=== PATIENT | female | born 1985 | race American Indian/Alaskan Native ===

== ENCOUNTER 2017-11-01 16:25 | Emergency (ER) | payer MEDICAID ==
[2017-11-01] MEDS ORDERED: TYLENOL PO ONE (20:11)
[2017-11-01] MEDS ORDERED: XYLOCAINE TOPICAL 2% 5ML ONE (20:15)
[2017-11-01] MEDS: XYLOCAINE TOPICAL 2% 30ML TP ONE ×2 (20:21→20:22)
[2017-11-01] MEDS ORDERED: XYLOCAINE TOPICAL 2% 5ML TP ONE (20:22)
--- NOTE | 2017-11-01 20:29 | Emergency Department Report ---
ED Female HPI - General Chief complaint: Rectal Pain Stated complaint: HEMORRHOIDS Time Seen by Provider: 11/01/17 20:10 Source: patient Mode of arrival: Wheelchair Limitations: No Limitations - History of Present Illness Initial comments: 31-year-old female past medical history hemorrhoids presents with complaint of painful external hemorrhoid. Patient denies any anal bleeding. States she has had this for some time and has had a history of hemorrhoids with pregnancies. Patient is currently . Patient denies any abdominal pain or vaginal bleeding. Denies any blood on toilet paper. States she is having slightly painful bowel movements. MD Complaint: other (hemorrhoids) Onset/Timin -: week(s) Location: other (anal region) Worsens with: other (defecation) Are you Now?: Yes Associated Symptoms: denies other symptoms - Related Data Sexually active: Yes Home Medications Medication Instructions Recorded Confirmed Last Taken Vit No.130/Iron/Folic 1 each PO DAILY 09/28/16 04/09/17 04/09/17 [ Tablet] Previous Rx's Medication Instructions Recorded Last Taken Type Ibuprofen [Motrin] 800 mg PO Q8HR PRN #30 tablet 04/11/17 Unknown Rx Labetalol HCl 300 mg PO BID #60 tablet 04/11/17 Unknown Rx oxyCODONE /ACETAMINOPHEN [Percocet 1 tab PO Q6HR PRN #30 tablet 04/11/17 Unknown Rx 5/325] Acetaminophen [Acetaminophen TAB] 500 mg PO Q6HR PRN #30 tablet 11/01/17 Unknown Rx Docusate Sodium [Stool Softener] 50 mg PO BID PRN #60 capsule 11/01/17 Unknown Rx Lidocaine Topical 2% 30Ml 1 applicatio MM BID PRN #1 tube 11/01/17 Unknown Rx [Xylocaine Topical 2% 30Ml] Phenyleph/Pramoxin/Glycr/W.pet 1 applicatio RC BID #1 cream..g. 11/01/17 Unknown Rx [Preparation H Cream] Psyllium Seed (with Sugar) 1 each PO QDAY PRN #1 box 11/01/17 Unknown Rx [Metamucil] Allergies Allergy/AdvReac Type Severity Reaction Status Date / Time codeine Allergy Anaphylaxis Verified 03/14/16 10:06 ED Review of Systems ROS: Stated complaint: HEMORRHOIDS Other details as noted in HPI Constitutional: denies: chills, fever Eyes: denies: eye pain, eye discharge, vision change ENT: denies: ear pain, throat pain Respiratory: denies: cough, shortness of breath, wheezing Cardiovascular: denies: chest pain, palpitations Endocrine: no symptoms reported Gastrointestinal: denies: abdominal pain, nausea, diarrhea Genitourinary: denies: urgency, dysuria, discharge Musculoskeletal: denies: back pain, joint swelling, arthralgia Skin: denies: rash, lesions Neurological: denies: headache, weakness, paresthesias Psychiatric: denies: anxiety, depression Hematological/Lymphatic: denies: easy bleeding, easy bruising ED Past Medical Hx - Past Medical History Hx Hypertension: Yes Hx Congestive Heart Failure: No Hx Diabetes: No Hx Deep Vein Thrombosis: No Hx Renal Disease: No Hx Sickle Cell Disease: No Hx Headaches / Migraines: Yes (past hx migraines) Hx Seizures: No Hx Asthma: Yes Hx COPD: No - Surgical History Past Surgical History?: Yes Additional Surgical History: D&C february - Social History Smoking Status: Never Smoker Substance Use Type: None - Medications Home Medications: Home Medications Medication Instructions Recorded Confirmed Last Taken Type Vit No.130/Iron/Folic 1 each PO DAILY 09/28/16 04/09/17 04/09/17 History [ Tablet] Ibuprofen [Motrin] 800 mg PO Q8HR PRN #30 tablet 04/11/17 Unknown Rx Labetalol HCl 300 mg PO BID #60 tablet 04/11/17 Unknown Rx oxyCODONE /ACETAMINOPHEN [Percocet 1 tab PO Q6HR PRN #30 tablet 04/11/17 Unknown Rx 5/325] Acetaminophen [Acetaminophen TAB] 500 mg PO Q6HR PRN #30 tablet 11/01/17 Unknown Rx Docusate Sodium [Stool Softener] 50 mg PO BID PRN #60 capsule 11/01/17 Unknown Rx Lidocaine Topical 2% 30Ml 1 applicatio MM BID PRN #1 tube 11/01/17 Unknown Rx [Xylocaine Topical 2% 30Ml] Phenyleph/Pramoxin/Glycr/W.pet 1 applicatio RC BID #1 cream..g. 11/01/17 Unknown Rx [Preparation H Cream] Psyllium Seed (with Sugar) 1 each PO QDAY PRN #1 box 11/01/17 Unknown Rx [Metamucil] ED Physical Exam - General Limitations: No Limitations General appearance: alert, in no apparent distress - Head Head exam: Present: atraumatic, normocephalic - Eye Eye exam: Present: normal appearance, PERRL, EOMI - ENT ENT exam: Present: mucous membranes moist - Neck Neck exam: Present: normal inspection - Respiratory Respiratory exam: Present: normal lung sounds bilaterally. Absent: respiratory distress - Cardiovascular Cardiovascular Exam: Present: regular rate, normal rhythm. Absent: systolic murmur, diastolic murmur, rubs, gallop - GI/Abdominal GI/Abdominal exam: Present: soft, normal bowel sounds - Rectal Rectal exam: Present: hemorrhoids (1-2 large xternal reducible hemorrhoids) - External exam: Present: normal external exam - Extremities Exam Extremities exam: Present: normal inspection - Back Exam Back exam: Present: normal inspection - Neurological Exam Neurological exam: Present: alert, oriented X3 - Psychiatric Psychiatric exam: Present: normal affect, normal mood - Skin Skin exam: Present: warm, dry, intact, normal color. Absent: rash ED Course Vital Signs 11/01/17 17:18 Temperature 98.7 F Pulse Rate 86 Respiratory 16 Rate Blood Pressure 176/95 O2 Sat by Pulse 99 Oximetry ED Medical Decision Making - Medical Decision Making A/P: External Hemorrhoids 1-as patient is this limits my analgesic spectrum for management. Tylenol when necessary for pain 2-topical hydrocortisone/lidocaine/Preparation H 3-sitz baths 4-I referred patient to gastroenterology Critical care attestation.: If time is entered above; I have spent that time in minutes in the direct care of this critically ill patient, excluding procedure time. ED Disposition Clinical Impression: External hemorrhoids Disposition: DC-01 TO HOME OR SELFCARE Is pt being admited?: No Does the pt Need Aspirin: No Condition: Stable Instructions: Hemorrhoids (ED), Hemorrhoidectomy (ED), Sitz Bath (GEN) Prescriptions: Acetaminophen [Acetaminophen TAB] 500 mg PO Q6HR PRN #30 tablet PRN Reason: Pain Docusate Sodium [Stool Softener] 50 mg PO BID PRN #60 capsule PRN Reason: Constipation Lidocaine Topical 2% 30Ml [Xylocaine Topical 2% 30Ml] 1 applicatio MM BID PRN # 1 tube PRN Reason: Hemorrhoids Phenyleph/Pramoxin/Glycr/W.pet [Preparation H Cream] 1 applicatio RC BID #1 cream..g. Psyllium Seed (with Sugar) [Metamucil] 1 each PO QDAY PRN #1 box PRN Reason: Constipation Referrals: CHUN NGUYEN MD [Primary Care Provider] - 3-5 Days [facility] [Provider Group] - 3-5 Days Forms: Accompanied Note Time of Disposition: 20:34
[2017-11-01 21:08] VITALS: BP 153/69
== END 2017-11-01 21:08 | disposition home or self-care (01) ==
LOC: ED 16:25
DX: K64.4 Residual hemorrhoidal skin tags (principal); I10 Essential (primary) hypertension; G43.909 Migraine, unspecified, not intractable, without status migrainosus; Z88.5 Allergy status to narcotic agent
CPT/HCPCS: 99283

== ENCOUNTER 2018-04-26 08:47 | Outpatient (CLI) | payer MEDICAID, OTHER ==
[2018-04-26] MEDS ORDERED: NORCO 5/325 PO ONE (09:53)
[2018-04-26 10:30] VITALS: BP 108/58
== END 2018-04-26 10:38 | disposition home or self-care (01) ==
LOC: TRG 08:47
PROVIDERS: ATTEND Obstetrics & Gynecology
DX: O47.03 False labor before 37 completed weeks of gestation, third trimester (principal); Z3A.33 33 weeks gestation of pregnancy; Z88.5 Allergy status to narcotic agent
CPT/HCPCS: 59025

== ENCOUNTER 2018-05-07 11:15 | Outpatient (CLI) | payer OTHER ==
[2018-05-07] MEDS ORDERED: LACTATED RINGERS 500 ML IV ONE (12:06)
[2018-05-07 15:11] VITALS: BP 144/87
== END 2018-05-07 15:55 | disposition left against medical advice (07) ==
LOC: TRG 11:15
PROVIDERS: ATTEND Obstetrics & Gynecology
DX: O47.03 False labor before 37 completed weeks of gestation, third trimester (principal); O11.3 Pre-existing hypertension with pre-eclampsia, third trimester; O99.213 Obesity complicating pregnancy, third trimester; Z3A.35 35 weeks gestation of pregnancy; Z88.6 Allergy status to analgesic agent
CPT/HCPCS: 59025

== ENCOUNTER 2018-05-07 15:58 | Outpatient (CLI) | payer OTHER ==
[2018-05-07] MEDS ORDERED: LACTATED RINGERS 500 ML IV ONE (16:10)
[2018-05-07 17:20] LABS: Hematocrit 36.6 % (30.3-42.9); Hemoglobin 12.1 gm/dl (10.1-14.3); Mean Corpuscular HGB Conc 33 % (30-34); Mean Corpuscular Hemoglobin 30 pg (28-32); Mean Corpuscular Volume 89 fl (79-97); Platelet Count 241 K/mm3 (140-440); Red Blood Count 4.09 M/mm3 (3.65-5.03); Red Cell Distribution Width 13.6 % (13.2-15.2)
[2018-05-07 17:24] LABS: Bacteria,Urine 1+ /HPF (Negative); Bilirubin,Urine NEG (Negative); Blood,Urine NEG (Negative); Color,Urine Yellow (Yellow); Mucus,Urine FEW /HPF; Protein,Urine <15 mg/dL mg/dL (Negative); Urobilinogen,Urine < 2.0 mg/dL (<2.0)
[2018-05-07 17:46] LABS: Alanine Aminotransferase 9 units/L (7-56); Uric Acid 4.3 mg/dL (3.5-7.6)
[2018-05-07 18:28] VITALS: BP 134/70
[2018-05-07] MEDS ORDERED: NORCO 5/325 PO ONE (18:50)
== END 2018-05-07 20:10 | disposition home or self-care (01) ==
LOC: TRG 15:58
PROVIDERS: ATTEND Obstetrics & Gynecology
DX: O47.03 False labor before 37 completed weeks of gestation, third trimester (principal); O11.3 Pre-existing hypertension with pre-eclampsia, third trimester; O99.213 Obesity complicating pregnancy, third trimester; Z3A.35 35 weeks gestation of pregnancy; Z88.6 Allergy status to analgesic agent
CPT/HCPCS: 36415; 59025; 81001; 82565; 83615; 84450; 84460; 84550; 85027

== ENCOUNTER 2018-06-05 02:28 | Inpatient (IN) | payer OTHER ==
[2018-06-05] MEDS ORDERED: LACTATED RINGERS 1,000 ML ONE (02:58)
[2018-06-05] MEDS ORDERED: POLYCILLIN/NS 2 GM/100 ML 2 GM/100 ML BAG IV ONE ×2 (02:59→03:09)
[2018-06-05] MEDS ORDERED: SUBLIMAZE IV ONE (03:08)
[2018-06-05] MEDS ORDERED: SUBLIMAZE ONE ×2 (03:13→05:41)
--- NOTE | 2018-06-05 03:13 | History and Physical Report ---
History of Present Illness Date of examination: 06/05/18 Date of admission: 06/05/18 02:55 History of present illness: 32 yo at 39 weeks presented to [facility] 8cm. course complicated by CHTN with meds. Lack of insurance towards end of , GBS unknown. History of depression with Zoloft during . +HSV 2. Comang't of care with [facility] Past History Past Medical History: hypertension Past Surgical History: no surgical history Family/Genetic History: hypertension Social history: no significant social history, - Obstetrical History Expected Date of Delivery: 06/11/18 Actual Gestation: 39 Week(s) 1 Day(s) : 9 Para: 5 Hx # Term Pregnancies: 5 Number of Living Children: 5 Medications and Allergies Allergies Allergy/AdvReac Type Severity Reaction Status Date / Time codeine Allergy Anaphylaxis Verified 03/14/16 10:06 Home Medications Medication Instructions Recorded Confirmed Last Taken Type Vit No.130/Iron/Folic 1 each PO DAILY 09/28/16 04/09/17 04/09/17 History [ Tablet] Ibuprofen [Motrin] 800 mg PO Q8HR PRN #30 tablet 04/11/17 Unknown Rx Labetalol HCl 300 mg PO BID #60 tablet 04/11/17 Unknown Rx oxyCODONE /ACETAMINOPHEN [Percocet 1 tab PO Q6HR PRN #30 tablet 04/11/17 Unknown Rx 5/325] Acetaminophen [Acetaminophen TAB] 500 mg PO Q6HR PRN #30 tablet 11/01/17 Unknown Rx Docusate Sodium [Stool Softener] 50 mg PO BID PRN #60 capsule 11/01/17 Unknown Rx Lidocaine Topical 2% 30Ml 1 applicatio MM BID PRN #1 tube 11/01/17 Unknown Rx [Xylocaine Topical 2% 30Ml] Phenyleph/Pramoxin/Glycr/W.pet 1 applicatio RC BID #1 cream..g. 11/01/17 Unknown Rx [Preparation H Cream] Psyllium Seed (with Sugar) 1 each PO QDAY PRN #1 box 11/01/17 Unknown Rx [Metamucil] Active Meds: Active Medications Ampicillin Sodium (Polycillin/Ns 2 Gm/100 Ml) 2 gm in 100 mls @ 100 mls/hr IV ONCE ONE Stop: 06/05/18 04:08 - Vital Signs Vital signs: Vital Signs Pulse BP 76 170/85 06/05/18 02:58 06/05/18 02:58 Temp Pulse Resp BP Pulse Ox 76 170/85 06/05/18 02:58 06/05/18 02:58 - Physical Exam Abdomen: Positive: normal appearance - Obstetrical FHR: category 1 Uterine Contraction Monitor Mode: External Cervical Dilatation: 9 Cervical Effacement Percentage: 90 station: 2 Uterine Contraction Pattern: Regular Uterine Tone Measurement Phase: Resting Uterine Contraction Intensity: Strong/Firm Results All other labs normal. Assessment and Plan A: IUP at term Transitional labor Unknown GBS CHTN-elevated BP (pain vs pree) P: PIH panel Ampicillin Anticipate
--- NOTE | 2018-06-05 03:21 | Procedure Note ---
OB Delivery Note - Delivery Date of Delivery: 06/05/18 (6-13oz male @ 0431) Surgeon: KODI CARL Estimated blood loss: 100cc - Vaginal Delivery presentation: vertex Delivery position: OA Intrapartum events: none Delivery augmentation: rupture of membranes Delivery monitor: external FHT, external uterine Route of delivery: Delivery placenta: spontaneous Delivery cord: 3 umbilical vessels Episiotomy: none Delivery laceration: none Anesthesia: none - A at 1 minute: 8 at 5 minutes: 9 Gender: Male (, luskty cry. Skin to skin. Cord blood collected. Spont. placenta, pitocin. FF 3 below U, ML. No lacerations. Inadaquate GBS treatmetn.)
[2018-06-05 03:23] LABS: Hemoglobin 11.4 gm/dl (10.1-14.3); Mean Corpuscular HGB Conc 33 % (30-34); Mean Corpuscular Hemoglobin 30 pg (28-32); Mean Corpuscular Volume 89 fl (79-97); Platelet Count 255 K/mm3 (140-440); Red Blood Count 3.81 M/mm3 (3.65-5.03); Red Cell Distribution Width 13.9 % (13.2-15.2)
[2018-06-05] MEDS ORDERED: PITOCin/NS 20 UNIT/1000ML DRIP 20,000 MILLIUNITS/1,000 ML BAG IV ONE (03:35)
[2018-06-05] MEDS ORDERED: NORMODYNE ONE (05:24)
[2018-06-05] MEDS ORDERED: LACTATED RINGERS 1,000 ML IV ONE (05:25)
[2018-06-05] MEDS ORDERED: PITOCin/NS 20 UNIT/1000ML DRIP 20 UNITS/1,000 ML BAG IV SCH ×2 (06:00→07:00)
[2018-06-05 06:01] LABS: Alanine Aminotransferase 11 units/L (7-56); Uric Acid 3.8 mg/dL (3.5-7.6)
[2018-06-05] MEDS ORDERED: TUCKS PAD TP PRN (06:34)
[2018-06-05] MEDS ORDERED: BENADRYL PO PRN (06:34)
[2018-06-05] MEDS ORDERED: SODIUM CHLORIDE FLUSH SYRINGE 10 ML IV NR (06:34)
[2018-06-05] MEDS ORDERED: PHENERGAN PR PRN (06:34)
[2018-06-05] MEDS ORDERED: ZOFRAN IV PRN (06:34)
[2018-06-05] MEDS ORDERED: LANSINOH TP PRN (06:34)
[2018-06-05] MEDS ORDERED: PHENERGAN PO PRN (06:34)
[2018-06-05] MEDS ORDERED: TYLENOL PO PRN (06:34)
[2018-06-05] MEDS: MOTRIN PO SCH ×2 (07:23→13:47)
[2018-06-05] MEDS: NORCO 5/325 PO PRN ×2 (07:31→16:08)
[2018-06-05] MEDS ORDERED: DULCOLAX PR PRN (10:00)
[2018-06-05] MEDS ORDERED: NORMODYNE PO SCH ×2 (10:00)
[2018-06-05 17:28] LABS: Hematocrit 30.7 % (30.3-42.9)
[2018-06-05] MEDS ORDERED: MILK OF MAGNESIA PO PRN (22:00)
[2018-06-06] MEDS: MOTRIN PO SCH ×3 (00:22→14:15)
[2018-06-06] MEDS: NORMODYNE PO SCH ×3 (00:23→21:47)
[2018-06-06] MEDS: NORCO 5/325 PO PRN ×3 (03:47→19:44)
--- NOTE | 2018-06-06 13:20 | Progress Note ---
Assessment and Plan - Patient Problems (1) Term of male Current Visit: No Status: Acute Plan to address problem: patient doing well discharge home Subjective - Subjective Date of service: 06/06/18 Interval history: Patient without complaints. Attempting to breast feed. Pain well controlled Patient reports: appetite normal, voiding normally, pain well controlled [place]: doing well Objective - Vital Signs Latest vital signs: Vital Signs Temp Pulse Resp BP BP BP 06/06/18 11:30 72 134/82 06/06/18 06:15 98.6 F 76 18 104/72 06/06/18 04:00 98.7 F 68 18 140/89 06/06/18 03:47 18 06/06/18 01:20 18 132/73 06/06/18 00:23 88 156/92 06/05/18 19:15 98 F 98 H 16 144/80 06/05/18 16:08 153/87 06/05/18 14:56 97.4 F L 67 18 153/87 Intake and Output 06/05/18 06/06/18 06/06/18 22:59 06:59 14:59 Intake Total 300 Balance 300 Intake: Intake, Free Water 300 Other: # Voids Void 3 - Exam Uterus: Present: normal, firm - Labs Labs: Abnormal lab results 06/05/18 Range/Units 17:08 Hgb 10.0 L (10.1-14.3) gm/dl
--- NOTE | 2018-06-06 13:21 | Discharge Summary ---
Providers - Providers Date of Admission: 06/05/18 02:55 Date of discharge: 06/06/18 Attending physician: ABEL RUSS Primary care physician: ABEL RUSS Hospitalization Reason for admission: active labor Delivery: Discharge diagnosis: IUP at term delivered baby: male Hospital course: Patient admitted in active labor. Had a . uncomplicated Condition at discharge: Good Disposition: DC-01 TO HOME OR SELFCARE - Discharge Diagnoses (1) Term of male Status: Acute Plan - Discharge Medications Prescriptions: Ibuprofen [Motrin] 800 mg PO Q8HR PRN #60 tablet PRN Reason: Pain, Mild (1-3) - Provider Discharge Summary Activity: no sex for 6 weeks, no heavy lifting 4 weeks, no strenuous exercise Diet: routine Instructions: routine Additional instructions: [] Smoking cessation referral if applicable(refer to patient education folder for contact #) [] Refer to [facility] Booklet Call your doctor immediately for: * Fever > 100.5 * Heavy vaginal bleeding ( >1 pad per hour) * Severe persistent headache * Shortness of breath * Reddened, hot, painful area to leg or breast * schedule followup in 4 weeks - Follow up plan
[2018-06-07] MEDS: MOTRIN PO SCH ×2 (01:06→07:15)
[2018-06-07 10:12] VITALS: BP 144/94
== END 2018-06-07 11:35 | disposition home or self-care (01) | DRG 774 ==
LOC: TRG 02:28 → LD 02:55 → OB 06:45
PROVIDERS: ADMIT Obstetrics & Gynecology; ATTEND Obstetrics & Gynecology
PROC: 10E0XZZ Delivery of Products of Conception, External Approach (ICD-10-PCS; principal; 2018-06-05)
DX: O10.92 Unspecified pre-existing hypertension complicating childbirth (principal); Z3A.39 39 weeks gestation of pregnancy; Z37.0 Single live birth; Z82.49 Family history of ischemic heart disease and other diseases of the circulatory system; Z88.5 Allergy status to narcotic agent
CPT/HCPCS: 36415; 82565; 83615; 84450; 84460; 84550; 85014; 85018; 85027; 86592; 86850; 86900; 86901; J0290; J2590; J3010; J7120

== ENCOUNTER 2019-09-14 05:50 | Emergency (ER) | payer MEDICAID, OTHER | END 2019-09-14 10:47 | disposition home or self-care (01) | LOC: ED 05:50 | CPT/HCPCS: 36415; 76805; 76810; 80048; 84702; 84703; 85025; 86900; 86901 ==

== ENCOUNTER 2019-10-23 13:52 | Outpatient (CLI) | payer OTHER ==
[2019-10-23 14:27] VITALS: BP 139/84
[2019-10-23 14:56] LABS: Bacteria,Urine 2+ /HPF (Negative); Bilirubin,Urine NEG (Negative); Blood,Urine NEG (Negative); Color,Urine Straw (Yellow); Mucus,Urine FEW /HPF; Protein,Urine <15 mg/dL mg/dL (Negative); Urobilinogen,Urine < 2.0 mg/dL (<2.0)
[2019-10-23] MEDS ORDERED: LACTATED RINGERS 500 ML IV ONE (15:00)
--- NOTE | 2019-10-23 15:34 | Ultrasound Report ---
ULTRASOUND OBSTETRIC INDICATION / CLINICAL INFORMATION: wellbeing. Clinical Gestational Age (GA): 20 weeks TECHNIQUE: Transabdominal. COMPARISON: ultrasound 09/14/2019 FINDINGS: There is a twin intrauterine . Baby A is in cephalic position with heart rate [address] acental abnormality is detected. Baby B is in breech position and has has heart rate [address] ental abnormalities detected. Cervical length 3.8 cm, within normal limits. Largest vertical pocket o f amniotic fluid measures 6.6 cm in depth. IMPRESSION: Viable twin . No significant abnormality is detected. Signer Name: Roger Cope MD Signed: 10/23/2019 3:29 PM Workstation Name: [id number]
== END 2019-10-23 15:45 | disposition home or self-care (01) ==
LOC: TRG 13:52
PROVIDERS: ATTEND Obstetrics & Gynecology
DX: O46.8X2 Other antepartum hemorrhage, second trimester (principal); Z3A.20 20 weeks gestation of pregnancy
CPT/HCPCS: 76815; 81001

== ENCOUNTER 2019-10-23 19:16 | Emergency (ER) | payer OTHER ==
[2019-10-23] MEDS ORDERED: ACETAMINOPHEN 500 MG TAB PO ONE (19:39)
--- NOTE | 2019-10-23 19:39 | Event Note ---
ED Screening Note ED Screening Note: Ms. Neal is newly homeless suicidal. Plan to walking into traffic. 20 weeks . cleared by L&D Can not afford housing. is not around. Has 6 children. Hx of previous suicide attempt, has depressed mood without clinical diagnosis of depression This initial assessment/diagnostic orders/clinical plan/treatment(s) is/are subject to change based on patients health status, clinical progression and re- assessment by fellow clinical providers in the ED. Further treatment and workup at subsequent clinical providers discretion. Patient/guardian urged not to elope from the ED as their condition may be serious if not clinically assessed and managed. Initial orders include: labs MH consult
[2019-10-23 20:22] LABS: Bacteria,Urine 1+ /HPF (Negative); Bilirubin,Urine NEG (Negative); Blood,Urine NEG (Negative); Color,Urine Straw (Yellow); Protein,Urine <15 mg/dL mg/dL (Negative); Urobilinogen,Urine < 2.0 mg/dL (<2.0); WBC,Urine < 1.0 /HPF (0.0-6.0)
[2019-10-23 20:26] LABS: Amphetamine Screen,Urine PRESUMPTIVE NEGATIVE; Benzodiazepines Screen,Urine PRESUMPTIVE NEGATIVE; Cannabinoid Screen,Urine PRESUMPTIVE NEGATIVE; Methadone Screen,Urine PRESUMPTIVE NEGATIVE; Opiate Screen,Urine PRESUMPTIVE NEGATIVE
[2019-10-23 20:29] LABS: Basophils % (Auto) 0.4 % (0.0-1.8); Eosinophils # (Auto) 0.1 K/mm3 (0.0-0.4); Hematocrit 31.1 % (30.3-42.9); Hemoglobin 10.4 gm/dl (10.1-14.3); Lymphocytes # (Auto) 1.7 K/mm3 (1.2-5.4); Lymphocytes % (Auto) 27.4 % (13.4-35.0); Mean Corpuscular HGB Conc 34 % (30-34); Mean Corpuscular Volume 87 fl (79-97); Monocytes # (Auto) 0.6 K/mm3 (0.0-0.8); Monocytes % (Auto) 10.4 % (0.0-7.3); Platelet Count 261 K/mm3 (140-440); Red Blood Count 3.57 M/mm3 (3.65-5.03)
[2019-10-23 20:40] LABS: Cocaine Screen,Urine PRESUMPTIVE POSITIVE
[2019-10-23 20:45] LABS: Alanine Aminotransferase 12 units/L (7-56); Albumin 3.6 g/dL (3.9-5); BUN/Creatinine Ratio 13; Blood Urea Nitrogen 8 mg/dL (7-17); Calcium 8.9 mg/dL (8.4-10.2); Hemolysis Index 1
[2019-10-23] MEDS: hydrALAZINE 10 MG TAB PO SCH (21:05)
--- NOTE | 2019-10-23 21:54 | Emergency Department Report ---
ED Psych HPI - General Chief Complaint: Psych Stated Complaint: ABDOMINAL CRAMPING, SUICIDAL IDEATIONS Time Seen by Provider: 10/23/19 20:50 Source: patient Mode of arrival: Wheelchair - History of Present Illness Initial Comments: Patient is a 33-year-old Female who is currently with twins is 20 weeks who also has 6 children who is having some suicidal thoughts. Patient states her had to travel to [place] for work and the patient and her children left homeless. Patient states they were living in a [place] [facility] briefly and then someone let them stay with them for the last several days that she met at a food pantry. The patient came to the hospital earlier today to go to labor and delivery and be checked out. Mild vaginal bleeding after being released the patient states that the person that she is currently staying with no longer let her back in the home. Patient states her 6 children are currently with her mother who will not let her come to the home but have accepted her children. Patient states she is feeling very hopeless and started having suicidal thoughts. Patient states she was having thoughts of running out into traffic of [facility]. - Related Data Home Medications Medication Instructions Recorded Confirmed Last Taken Vit No.130/Iron/Folic 1 each PO DAILY 09/28/16 10/23/19 1 Day Ago [ Tablet] ~08/19/18 Labetalol HCl 300 mg PO TID 06/05/18 10/23/19 1 Day Ago ~08/19/18 Previous Rx's Medication Instructions Recorded Last Taken Type Sertraline [Zoloft] 25 mg PO ONCE #30 tablet 10/25/19 Unknown Rx Allergies Allergy/AdvReac Type Severity Reaction Status Date / Time codeine Allergy Severe Anaphylaxis Verified 10/23/19 14:12 ED Review of Systems ROS: Stated complaint: ABDOMINAL CRAMPING, SUICIDAL IDEATIONS Other details as noted in HPI Comment: All other systems reviewed and negative ED Past Medical Hx - Past Medical History Previous Medical History?: Yes Hx Hypertension: Yes Hx Congestive Heart Failure: No Hx Diabetes: No Hx Deep Vein Thrombosis: No Hx Renal Disease: No Hx Sickle Cell Disease: No Hx Headaches / Migraines: Yes (past hx migraines) Hx Seizures: No Hx Asthma: Yes Hx COPD: No Hx HIV: No - Surgical History Hx Appendectomy: Yes Additional Surgical History: D&C february - Social History Smoking Status: Never Smoker Substance Use Type: None - Medications Home Medications: Home Medications Medication Instructions Recorded Confirmed Last Taken Type Vit No.130/Iron/Folic 1 each PO DAILY 09/28/16 10/23/19 1 Day Ago History [ Tablet] ~08/19/18 Labetalol HCl 300 mg PO TID 06/05/18 10/23/19 1 Day Ago History ~08/19/18 Sertraline [Zoloft] 25 mg PO ONCE #30 tablet 10/25/19 Unknown Rx ED Physical Exam - General Limitations: No Limitations General appearance: alert, in no apparent distress - Head Head exam: Present: atraumatic, normocephalic - Eye Eye exam: Present: normal appearance - ENT ENT exam: Present: mucous membranes moist - Neck Neck exam: Present: normal inspection - Respiratory Respiratory exam: Present: normal lung sounds bilaterally. Absent: respiratory distress, wheezes, rales, rhonchi - Cardiovascular Cardiovascular Exam: Present: regular rate, normal rhythm, normal heart sounds. Absent: systolic murmur, diastolic murmur, rubs, gallop - GI/Abdominal GI/Abdominal exam: Present: soft, normal bowel sounds. Absent: distended, tenderness, guarding - Extremities Exam Extremities exam: Present: normal inspection - Back Exam Back exam: Present: normal inspection - Neurological Exam Neurological exam: Present: alert, oriented X3 - Psychiatric Psychiatric exam: Present: normal affect, normal mood - Skin Skin exam: Present: warm, dry, intact, normal color. Absent: rash ED Course Vital Signs 10/23/19 10/23/19 10/23/19 19:21 20:30 21:05 Temperature 99.1 F 98.8 F Pulse Rate 83 71 71 Respiratory 18 18 Rate Blood Pressure 207/170 172/88 Blood Pressure 172/88 [Left] O2 Sat by Pulse 100 98 Oximetry 10/23/19 10/24/19 10/24/19 22:17 03:00 08:57 Temperature 98.5 F 98.4 F Pulse Rate 76 68 81 Respiratory 16 Rate Blood Pressure 175/96 Blood Pressure 184/100 183/107 [Left] O2 Sat by Pulse 100 100 Oximetry 10/24/19 10/24/19 10/24/19 09:00 09:44 15:00 Temperature Pulse Rate 71 71 76 Respiratory Rate Blood Pressure 183/107 183/107 153/101 Blood Pressure [Left] O2 Sat by Pulse Oximetry 10/24/19 10/25/19 10/25/19 20:00 01:31 08:14 Temperature 98.0 F 98.4 F 98.6 F Pulse Rate 83 62 67 Respiratory 20 20 18 Rate Blood Pressure Blood Pressure 124/88 177/112 185/100 [Left] O2 Sat by Pulse 99 100 100 Oximetry 10/25/19 10/25/19 10/25/19 08:22 13:25 14:00 Temperature 98.3 F Pulse Rate 67 87 87 Respiratory 18 Rate Blood Pressure 184/100 162/102 Blood Pressure 162/102 [Left] O2 Sat by Pulse 100 Oximetry 10/25/19 10/25/19 10/25/19 16:00 16:13 20:22 Temperature 98.2 F Pulse Rate 89 89 86 Respiratory 18 18 Rate Blood Pressure 135/66 181/106 Blood Pressure 135/66 181/106 [Left] O2 Sat by Pulse 100 99 Oximetry 10/25/19 10/26/19 10/26/19 21:00 01:59 07:00 Temperature 98.0 F 99.0 F 98.6 F Pulse Rate 74 76 65 Respiratory 18 18 16 Rate Blood Pressure Blood Pressure 129/73 133/65 174/97 [Left] O2 Sat by Pulse 99 96 98 Oximetry 10/26/19 09:22 Temperature Pulse Rate 65 Respiratory Rate Blood Pressure 174/97 Blood Pressure [Left] O2 Sat by Pulse Oximetry - Reevaluation(s) Reevaluation #1: 10/31/19 05:54 LINDA HARDWICK Female : 1985 MedRec# [id number] 10/25/19 15:38 - MH Inseam Trimming Machine Operator's Note by JACKIE CARROLL Acct Num: [id number] : 1985 Patient Age: 33 Inseam Trimming Machine Operator met with pt to complete safety plan. Jackie Carroll LMSW Initialized on 10/25/19 15:38 - END OF NOTE ED Medical Decision Making - Lab Data Result diagrams: 10/23/19 19:54 10/23/19 19:54 Lab Results 10/23/19 10/23/19 10/23/19 Range/Units 19:54 19:54 19:54 WBC 6.2 (4.5-11.0) K/mm3 RBC 3.57 L (3.65-5.03) M/mm3 Hgb 10.4 (10.1-14.3) gm/dl Hct 31.1 (30.3-42.9) % MCV 87 (79-97) fl MCH 29 (28-32) pg MCHC 34 (30-34) % RDW 14.0 (13.2-15.2) % Plt Count 261 (140-440) K/mm3 Lymph % (Auto) 27.4 (13.4-35.0) % [place] % (Auto) 10.4 H (0.0-7.3) % Eos % (Auto) 2.0 (0.0-4.3) % Baso % (Auto) 0.4 (0.0-1.8) % Lymph # 1.7 (1.2-5.4) K/mm3 [place] # 0.6 (0.0-0.8) K/mm3 Eos # 0.1 (0.0-0.4) K/mm3 Baso # 0.0 (0.0-0.1) K/mm3 Seg Neutrophils % 59.8 (40.0-70.0) % Seg Neutrophils # 3.7 (1.8-7.7) K/mm3 Sodium 135 L (137-145) mmol/L Potassium 3.8 (3.6-5.0) mmol/L Chloride 103.2 (98-107) mmol/L Carbon Dioxide 18 L (22-30) mmol/L Anion Gap 18 mmol/L BUN 8 (7-17) mg/dL Creatinine 0.6 L (0.7-1.2) mg/dL Estimated GFR > 60 ml/min BUN/Creatinine Ratio 13 % Glucose 83 (65-100) mg/dL Calcium 8.9 (8.4-10.2) mg/dL Total Bilirubin < 0.20 (0.1-1.2) mg/dL AST 20 (5-40) units/L ALT 12 (7-56) units/L Alkaline Phosphatase 42 (35-129) units/L Total Protein 6.8 (6.3-8.2) g/dL Albumin 3.6 L (3.9-5) g/dL Albumin/Globulin Ratio 1.1 % Urine Color (Yellow) Urine Turbidity (Clear) Urine pH (5.0-7.0) Ur Specific [place] (1.003-1.030) Urine Protein (Negative) mg/dL Urine Glucose (UA) (Negative) mg/dL Urine Ketones (Negative) mg/dL Urine Blood (Negative) Urine Nitrite (Negative) Urine Bilirubin (Negative) Urine Urobilinogen (<2.0) mg/dL Ur Leukocyte Esterase (Negative) Urine WBC (Auto) (0.0-6.0) /HPF Urine RBC (Auto) (0.0-6.0) /HPF U Epithel Cells (Auto) (0-13.0) /HPF Urine Bacteria (Auto) (Negative) /HPF Salicylates < 0.3 L (2.8-20.0) mg/dL Urine Opiates Screen Urine Methadone Screen Acetaminophen (10.0-30.0) ug/mL Ur Barbiturates Screen Ur Phencyclidine Scrn Ur Amphetamines Screen U Benzodiazepines Scrn Urine Cocaine Screen U Marijuana (THC) Screen Drugs of Abuse Note Plasma/Serum Alcohol (0-0.07) % 10/23/19 10/23/19 10/23/19 Range/Units 19:54 19:54 19:59 WBC (4.5-11.0) K/mm3 RBC (3.65-5.03) M/mm3 Hgb (10.1-14.3) gm/dl Hct (30.3-42.9) % MCV (79-97) fl MCH (28-32) pg MCHC (30-34) % RDW (13.2-15.2) % Plt Count (140-440) K/mm3 Lymph % (Auto) (13.4-35.0) % [place] % (Auto) (0.0-7.3) % Eos % (Auto) (0.0-4.3) % Baso % (Auto) (0.0-1.8) % Lymph # (1.2-5.4) K/mm3 [place] # (0.0-0.8) K/mm3 Eos # (0.0-0.4) K/mm3 Baso # (0.0-0.1) K/mm3 Seg Neutrophils % (40.0-70.0) % Seg Neutrophils # (1.8-7.7) K/mm3 Sodium (137-145) mmol/L Potassium (3.6-5.0) mmol/L Chloride (98-107) mmol/L Carbon Dioxide (22-30) mmol/L Anion Gap mmol/L BUN (7-17) mg/dL Creatinine (0.7-1.2) mg/dL Estimated GFR ml/min BUN/Creatinine Ratio % Glucose (65-100) mg/dL Calcium (8.4-10.2) mg/dL Total Bilirubin (0.1-1.2) mg/dL AST (5-40) units/L ALT (7-56) units/L Alkaline Phosphatase (35-129) units/L Total Protein (6.3-8.2) g/dL Albumin (3.9-5) g/dL Albumin/Globulin Ratio % Urine Color Straw (Yellow) Urine Turbidity Clear (Clear) Urine pH 6.0 (5.0-7.0) Ur Specific [place] 1.004 (1.003-1.030) Urine Protein <15 mg/dl (Negative) mg/dL Urine Glucose (UA) Neg (Negative) mg/dL Urine Ketones Neg (Negative) mg/dL Urine Blood Neg (Negative) Urine Nitrite Neg (Negative) Urine Bilirubin Neg (Negative) Urine Urobilinogen < 2.0 (<2.0) mg/dL Ur Leukocyte Esterase Neg (Negative) Urine WBC (Auto) < 1.0 (0.0-6.0) /HPF Urine RBC (Auto) 1.0 (0.0-6.0) /HPF U Epithel Cells (Auto) 1.0 (0-13.0) /HPF Urine Bacteria (Auto) 1+ (Negative) /HPF Salicylates (2.8-20.0) mg/dL Urine Opiates Screen Urine Methadone Screen Acetaminophen < 5.0 L (10.0-30.0) ug/mL Ur Barbiturates Screen Ur Phencyclidine Scrn Ur Amphetamines Screen U Benzodiazepines Scrn Urine Cocaine Screen U Marijuana (THC) Screen Drugs of Abuse Note Plasma/Serum Alcohol < 0.01 (0-0.07) % 10/23/19 Range/Units 19:59 WBC (4.5-11.0) K/mm3 RBC (3.65-5.03) M/mm3 Hgb (10.1-14.3) gm/dl Hct (30.3-42.9) % MCV (79-97) fl MCH (28-32) pg MCHC (30-34) % RDW (13.2-15.2) % Plt Count (140-440) K/mm3 Lymph % (Auto) (13.4-35.0) % [place] % (Auto) (0.0-7.3) % Eos % (Auto) (0.0-4.3) % Baso % (Auto) (0.0-1.8) % Lymph # (1.2-5.4) K/mm3 [place] # (0.0-0.8) K/mm3 Eos # (0.0-0.4) K/mm3 Baso # (0.0-0.1) K/mm3 Seg Neutrophils % (40.0-70.0) % Seg Neutrophils # (1.8-7.7) K/mm3 Sodium (137-145) mmol/L Potassium (3.6-5.0) mmol/L Chloride (98-107) mmol/L Carbon Dioxide (22-30) mmol/L Anion Gap mmol/L BUN (7-17) mg/dL Creatinine (0.7-1.2) mg/dL Estimated GFR ml/min BUN/Creatinine Ratio % Glucose (65-100) mg/dL Calcium (8.4-10.2) mg/dL Total Bilirubin (0.1-1.2) mg/dL AST (5-40) units/L ALT (7-56) units/L Alkaline Phosphatase (35-129) units/L Total Protein (6.3-8.2) g/dL Albumin (3.9-5) g/dL Albumin/Globulin Ratio % Urine Color (Yellow) Urine Turbidity (Clear) Urine pH (5.0-7.0) Ur Specific [place] (1.003-1.030) Urine Protein (Negative) mg/dL Urine Glucose (UA) (Negative) mg/dL Urine Ketones (Negative) mg/dL Urine Blood (Negative) Urine Nitrite (Negative) Urine Bilirubin (Negative) Urine Urobilinogen (<2.0) mg/dL Ur Leukocyte Esterase (Negative) Urine WBC (Auto) (0.0-6.0) /HPF Urine RBC (Auto) (0.0-6.0) /HPF U Epithel Cells (Auto) (0-13.0) /HPF Urine Bacteria (Auto) (Negative) /HPF Salicylates (2.8-20.0) mg/dL Urine Opiates Screen Presumptive negative Urine Methadone Screen Presumptive negative Acetaminophen (10.0-30.0) ug/mL Ur Barbiturates Screen Presumptive negative Ur Phencyclidine Scrn Presumptive negative Ur Amphetamines Screen Presumptive negative U Benzodiazepines Scrn Presumptive negative Urine Cocaine Screen Presumptive positive U Marijuana (THC) Screen Presumptive negative Drugs of Abuse Note Disclamer Plasma/Serum Alcohol (0-0.07) % - Medical Decision Making She was ordered been cleared by labor and delivery. Patient is no longer having vaginal bleeding. Patient will be placed on a psychiatric hold. Patient is medical cleared for psychiatric evaluation at this time. Critical care attestation.: If time is entered above; I have spent that time in minutes in the direct care of this critically ill patient, excluding procedure time. ED Disposition Clinical Impression: Suicidal ideation, Cocaine abuse, Depression Disposition: DC-01 TO HOME OR SELFCARE Is pt being admited?: No Condition: Stable Instructions: Cocaine Abuse (ED), Mood Disorders (ED), Suicide Prevention for Adults (ED) Prescriptions: Sertraline [Zoloft] 25 mg PO ONCE #30 tablet Referrals: PRIMARY CARE, [Primary Care Provider] - 3-5 Days
[2019-10-24] MEDS ORDERED: ACETAMINOPHEN 325 MG TAB PO ONE (00:51)
[2019-10-24] MEDS ORDERED: ACETAMINOPHEN 325 MG TAB ONE (00:51)
[2019-10-24] MEDS: hydrALAZINE 10 MG TAB PO SCH ×3 (09:00→21:02)
[2019-10-24] MEDS: PRENATAL VIT27-FE FUMARATE-FOLIC ACID VIT TAB PO SCH (09:44)
[2019-10-25] MEDS: hydrALAZINE 100 MG TAB PO SCH ×3 (08:22→20:22)
[2019-10-25] MEDS: PRENATAL VIT27-FE FUMARATE-FOLIC ACID VIT TAB PO SCH (10:17)
--- NOTE | 2019-10-25 13:38 | Consultation ---
History of Present Illness - Reason for Consult Consult date: 10/25/19 Reason for consult: psychiatric assessment - History of Present Psychiatric Illness ms liriano is a 33-year-old -[place] female.The patient is alert and oriented 4.The patient maintained eye contact. the patient reports that she came to the hospital because she is 20 weeks and was bleeding. The patient states, "I have been staying with a stranger's for the last 4 days,Because I am homeless", the patient stated that she has 6 kids and she is now with twins. The patient states that she was cleared from labor and delivery to go home, she eventually went back to the [facility] and he told her she couldn't return there, she said she became agitated and started bleeding again came back to labor and delivery and became overwhelm because she had no place to go and told the nurse she felt like hurting herself because she had no where to go. The patient currently denies suicidal or homicidal ideation,she denies visual or auditory hallucinations. The patient reports that she was diagnosed with depression years ago and was started on Zoloft which she only took for 2 weeks. Patient stated she didn't think the medication was working. The patient states "I'm not suicidal I will never kill myself I have to live for my children and myself I was just overwhelmed if I could only find somewhere to live that's all I want", she stated "I get depressed because my mother said she would call [facility] and I don't want to lose my children. The patient's leaves. "If I could just get somewhere for me and my kids I will be fine". Patient states that she is eating and sleeping that all her depression is from not having a place to live.cognition appears grossly intact with appropriate attention span and concentration and average fund of knowledge judgment appears fair insight appears fair. PAST PSYCHIATRIC HISTORY: Diagnoses: depression Suicide attempts or Self-harm behavior: years ago Prior psychiatric hospitalizations: no Substance Abuse history:no Previous psychiatric medications tried: zoloft Outpatient treatment: no PAST MEDICAL HISTORY: Family Psychiatric History mother and other family members SOCIAL HISTORY Marital Status: Living Arrangements: homeless Employment Status: unemployed Access to guns/weapons: denies Education: college History of Abuse: interests Legal History: no REVIEW OF SYSTEMS Constitutional: Negative for weight loss ENT: Negative for stridor Respiratory: Negative for cough or hemoptysis All other systems reviewed and are negative MENTAL STATUS General Appearance and Behavior: age appropriate, good eye contact, cooperative with questioning and polite Cooperation: Cooperative Psychomotor Behavior: within normal limits Mood: sad Affect and affective range: Congruent with stated mood Thought Process: Fluent/Logical and Goal-directed Thought Content: Within reality Speech: Normal volume and Regular rate and rhythm Intellectual Functioning Average Suicidal Ideation: Denies SI Homicidal Ideation: Denies HI Impulse Control: intact Insight and Judgment: normal insight and judgment Memory: Normal Attention: Normal Orientation: alert and oriented RECOMMENDATIONS MEDICATIONS: start zoloft 25MG DAILY Risks, benefits and alternatives of medications discussed with the patient, qu estions answered and consent obtained from patient. PSYCHOTHERAPY: Supportive psychotherapy provided MEDICAL: Per primary team IMAGING SPECIALIST: DISPOSITION: Per primary team; no indication for acute inpatient psychiatric hospitalization at this time. The patient is able to articulate needs is motivat ed for complaints and adherence to medication regimen.The patient understands that if suicidal ideas, homicidal ideas, or any endangering thoughts arise, the patient should immediately seek for emergent assistance including but not limited to crisis hot line and emergency room. Follow up with outpatient Psychiatrist and PCP within 7 - 14 days of discharge. sheet metal worker will try to find placement for patient. LEGAL STATUS: D/C 1013 FOLLOW-UP:sign off Medications and Allergies Allergies Allergy/AdvReac Type Severity Reaction Status Date / Time codeine Allergy Severe Anaphylaxis Verified 10/23/19 14:12 Home Medications Medication Instructions Recorded Confirmed Last Taken Type Vit No.130/Iron/Folic 1 each PO DAILY 09/28/16 10/23/19 1 Day Ago History [ Tablet] ~08/19/18 Labetalol HCl 300 mg PO TID 06/05/18 10/23/19 1 Day Ago History ~08/19/18 Sertraline [Zoloft] 25 mg PO ONCE #30 tablet 10/25/19 Unknown Rx Active Meds: Active Medications Hydralazine HCl (Apresoline) 100 mg PO TID [facility] Last Admin: 10/25/19 08:22 Dose: 100 mg Documented by: Labetalol HCl (Labetalol) 300 mg PO TID [facility] Last Admin: 10/25/19 08:22 Dose: 300 mg Documented by: Multivitamins/Iron/Calcium ( Vitamin) 1 each PO DAILY [facility] Last Admin: 10/25/19 10:17 Dose: 1 each Documented by: Mental Status Exam - Vital signs Last Vital Signs Temp 98.3 F 10/25/19 13:25 Pulse 87 10/25/19 13:25 Resp 18 10/25/19 13:25 BP 162/102 10/25/19 13:25 Pulse Ox 100 10/25/19 13:25 Results Result Diagrams: 10/23/19 19:54 10/23/19 19:54 All other labs normal.
[2019-10-25] MEDS ORDERED: ACETAMINOPHEN 325 MG TAB PO ONE ×2 (13:43→21:31)
--- NOTE | 2019-10-25 13:59 | Emergency Department Report ---
Blank Doc - Documentation Documentation: Spoke To Dr. Willis OB provider she recommends patient can 20 mg of labeta lol IV times one monitor for blood pressure. Blood pressure does not come down to 160/100 given another dose of 20 mg of labetalol continue to monitor. Blood pressure has not improved condition continue with 20 mg of hydralazine IV. She also recommends to maximize her labetalol by mouth. Reports the patient is a chronic hypertensive uncontrolled she was not preeclampsia. Samuel [phone]
[2019-10-25] MEDS ORDERED: SERTRALINE 25 MG TAB PO ONE (14:00)
[2019-10-25] MEDS ORDERED: LIP THERAPY VASELINE TP ONE (20:17)
[2019-10-25] MEDS ORDERED: LIP THERAPY VASELINE TP PRN (20:22)
[2019-10-25] MEDS ORDERED: ACETAMINOPHEN 325 MG TAB ONE (21:34)
[2019-10-26] MEDS ORDERED: ACETAMINOPHEN 325 MG TAB ONE (03:10)
[2019-10-26] MEDS ORDERED: ACETAMINOPHEN 325 MG TAB PO ONE (06:02)
[2019-10-26 07:56] VITALS: BP 174/97
[2019-10-26] MEDS: hydrALAZINE 100 MG TAB PO SCH (09:10)
== END 2019-10-26 11:22 | disposition home or self-care (01) ==
LOC: EEVIPCON 19:16 → ED 19:16
DX: O26.892 Other specified pregnancy related conditions, second trimester (principal); O99.342 Other mental disorders complicating pregnancy, second trimester; F99 Mental disorder, not otherwise specified; R45.851 Suicidal ideations; F12.10 Cannabis abuse, uncomplicated; I10 Essential (primary) hypertension; G43.909 Migraine, unspecified, not intractable, without status migrainosus; Z79.899 Other long term (current) drug therapy; Z3A.20 20 weeks gestation of pregnancy; Z88.6 Allergy status to analgesic agent
CPT/HCPCS: 36415; 80053; 80307; 80320; 81001; 85025; G0480

== ENCOUNTER 2020-03-19 21:35 | Emergency (ER) | payer MEDICAID | END 2020-03-19 21:57 | disposition left against medical advice (07) | LOC: ED 21:35 | DX: H57.12 Ocular pain, left eye (principal); Z53.21 Procedure and treatment not carried out due to patient leaving prior to being seen by health care provider ==